=== PATIENT | male | born 2000 | race Caucasian/White ===

== ENCOUNTER 2021-09-28 19:05 | Emergency (ER) | payer SELFPAY ==
[~2021-09-28] VITALS: Ht 157.5 cm; Wt 59.9 kg
[2021-09-28 19:25] VITALS: BP 109/51
--- NOTE | 2021-09-28 19:28 | NUR ---
PT SENT TO LOBBY
[2021-09-28] MEDS ORDERED: ACETAMINOPHEN EXTRA STRENGTH 500 MG TAB PO ONE (19:45)
[2021-09-28] MEDS ORDERED: ONDANSETRON 4 MG ODT PO ONE (19:45)
[2021-09-28] MEDS ORDERED: ALUMINUM HYD/MAG/SIMETHICONE 30 ML UDC PO ONE (19:45)
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
[2021-09-28 20:18] LABS: BASOPHILS # (AUTO) 0.1 K/uL (0.00-0.22); BASOPHILS % (AUTO) 0.8 % (0.0-2.0); EOSINOPHILS % (AUTO) 0.3 % (0.0-4.0); HEMATOCRIT 46.5 % (36-52); HEMOGLOBIN 16.4 g/dL (12.0-18.0); LYMPHOCYTES # (AUTO) 0.9 K/uL (2.0-11.5); LYMPHOCYTES % (AUTO) 7.1 % (20.5-51.1); MEAN CORPUSCULAR HEMOGLOBIN 32 pg (27-31); MEAN CORPUSCULAR HGB CONC 35 g/dL (33-37); MEAN CORPUSCULAR VOLUME 89.9 fL (80-94); NEUTROPHILS # (AUTO) 10.8 K/uL (1.8-7.7); NEUTROPHILS % (AUTO) 83.8 % (42.2-75.2); PLATELET COUNT (AUTO) 236 K/uL (140-450); RED BLOOD CELL COUNT(AUTO) 5.17 MIL/uL (4.20-6.10); RED CELL DISTRIBUTION WIDTH 12.9 % (11.6-13.7); WHITE BLOOD COUNT (AUTO) 12.9 K/uL (4.5-11.0)
[2021-09-28 20:41] LABS: ALBUMIN 4.4 g/dL (3.4-5.0); ANION GAP 19.9 (8-16); CARBON DIOXIDE 21.6 mmol/L (21-32); CREATININE 1.1 mg/dL (0.6-1.3); POTASSIUM 3.5 mmol/L (3.5-5.1); TOTAL BILIRUBIN 0.7 mg/dL (0.0-1.0)
[2021-09-28] MEDS ORDERED: ONDA-188 SL (21:32)
[2021-09-28 21:38] VITALS: BP 109/51
== END 2021-09-28 21:38 | disposition home or self-care (01) ==
LOC: MED 19:05
DX: B34.9 Viral infection, unspecified (principal); Z20.822 Contact with and (suspected) exposure to COVID-19; R11.10 Vomiting, unspecified; M79.10 Myalgia, unspecified site
CPT/HCPCS: 36415; 80053; 83690; 85025; 87426; 87804; 99284; Q0162

== ENCOUNTER 2023-08-10 02:30 | Emergency (ER) | payer OTHER ==
[~2023-08-10] VITALS: Ht 157.5 cm; Wt 63.5 kg
[~2023-08-10 02:30] MED LIST: ONDA-188 SL
[2023-08-10 02:42] VITALS: BP 113/68; PULSE 129; RESP 20; TEMP 98; O2SAT 98
[2023-08-10] MEDS ORDERED: LIDOCAINE MPF 1% 10 MG/ML VIAL INJ ONE (03:30)
== END 2023-08-10 04:14 | disposition home or self-care (01) ==
LOC: MED 02:30
DX: S63.255A Unspecified dislocation of left ring finger, initial encounter (principal); Z79.899 Other long term (current) drug therapy; Y04.0XXA Assault by unarmed brawl or fight, initial encounter; Y92.89 Other specified places as the place of occurrence of the external cause; Y93.89 Activity, other specified; Y99.8 Other external cause status
CPT/HCPCS: 26770; 73140; 99284; J2001